=== PATIENT | female | born 1985 | race Caucasian/White ===

== ENCOUNTER → 2017-12-11 | Outpatient (CLI) | payer OTHER | LOC: RAD 08:14 | DX: S90.32XA Contusion of left foot, initial encounter (principal); X58.XXXA Exposure to other specified factors, initial encounter; Y93.89 Activity, other specified; Y92.89 Other specified places as the place of occurrence of the external cause; Y99.8 Other external cause status ==

== ENCOUNTER → 2018-12-01 | Outpatient (CLI) | payer OTHER | LOC: ULTRA 15:47 | DX: N83.292 Other ovarian cyst, left side (principal) ==